=== PATIENT | male | born 1985 | race Caucasian/White ===

== ENCOUNTER 2019-01-22 15:49 | Outpatient (REF) | payer OTHER, SELFPAY ==
[2019-01-24 10:16] LABS: Lyme Ab w Rflx to Lyme Confirm Negative
== END 2019-01-22 16:09 ==
LOC: NCHCN 15:49
PROVIDERS: PCP Internal Medicine; Visit Provider Nurse Practitioner Family
DX: R53.83 Other fatigue (principal); M25.50 Pain in unspecified joint; W57.XXXA Bitten or stung by nonvenomous insect and other nonvenomous arthropods, initial encounter; T14.8XXA Other injury of unspecified body region, initial encounter
CPT/HCPCS: 86618

== ENCOUNTER 2019-06-06 09:17 | Outpatient (REF) | payer OTHER, SELFPAY ==
[2019-06-06 14:24] LABS: ALT 38 U/L (16-63); AST 20 U/L (15-37); Alkaline Phosphatase 81 U/L (46-116); Anion Gap 10.1 mmol/L (3-11); BUN 20 mg/dL (7-18); Bilirubin, Total 0.4 mg/dL (0.2-1.0); CO2 24.9 mmol/L (21.0-32.0); CREATININE 0.85 mg/dL (0.70-1.30); Calcium 8.8 mg/dL (8.5-10.1); Calculated LDL 99 mg/dL; Chloride 103 mmol/L (98-107); Cholesterol 186 mg/dL (50-200); Glucose 104 mg/dL (70-100); HDL Cholesterol 79 mg/dL (40-60); Potassium 4.5 mmol/L (3.5-5.1); Sodium 138 mmol/L (136-145); T4 6.3 ug/dL (4.5-12.5); TSH 1.27 uIU/mL (0.36-3.74); Total Protein 7.1 g/dL (6.4-8.2); Triglyceride 40 mg/dL (30-150)
[2019-06-06 22:02] LABS: T3,Free 4.1 pg/ml (2.8-5.3)
[2019-06-06 22:19] LABS: T3, Total 111 ng/dl (97-169)
== END 2019-06-06 09:37 ==
LOC: NCHCN 09:17
PROVIDERS: PCP Internal Medicine; Visit Provider Family Medicine
DX: E04.1 Nontoxic single thyroid nodule (principal)
CPT/HCPCS: 80053; 80061; 84436; 84439; 84443; 84480; 84481

== ENCOUNTER 2019-06-14 10:05 | Outpatient (CLI) | payer OTHER, SELFPAY ==
--- NOTE | 2019-06-14 15:45 | DI.US_ITS ---
SYMPTOM/DIAGNOSIS: THYROID NODULE, E04.1 THYROID ULTRASOUND: The right thyroid lobe measures 5.5 by 1.7 by 2.5 cm. The isthmus measures 5.1 mm. The left thyroid lobe measures 5.5 by 1.6 by 1.5 cm. There is no evidence of a mass or cyst. A palpable area appears to represent a 1.7 by 0.3 by 1.2 cm. lymph node.
== END 2019-06-14 10:25 ==
PROVIDERS: PCP Internal Medicine; Visit Provider Family Medicine
DX: E04.1 Nontoxic single thyroid nodule (principal); R59.0 Localized enlarged lymph nodes
CPT/HCPCS: 76536

== ENCOUNTER 2023-04-24 22:52 | Outpatient (CLI) | payer BC, OTHER, SELFPAY ==
--- NOTE | 2023-04-24 | DI.RAD_ITS ---
Exam(s) XR ANKLE RT COMPLETE EXAM: XR ANKLE RT COMPLETE CLINICAL HISTORY: PAIN IN RIGHT ANKLE---M25.571. TECHNIQUE: 2D digital imaging was performed of the right ankle. Three images were obtained. AP, la teral and oblique views were obtained. COMPARISON: No exams were available for comparison FINDINGS: BONES: No acute fracture is present. No bony destructive lesion is seen. There is a tiny round densi ty anterior to the ankle joint on the lateral view. This may represent a loose body. JOINTS: The ankle mortise is normally aligned. SOFT TISSUE: Normal. IMPRESSION: 1. No acute fracture or dislocation. 2. On the lateral view there appears to be a round density anterior to the ankle joint. This may be a loose body within the joint. An MRI may be obtained for further evaluation. DATA REPOSITORY: RADIATION DOSE DELIVERED:
== END 2023-04-24 23:12 ==
PROVIDERS: PCP Internal Medicine; Visit Provider Nurse Practitioner Family
DX: M25.571 Pain in right ankle and joints of right foot (principal)
CPT/HCPCS: 73610

== ENCOUNTER 2024-08-28 15:21 | Outpatient (REF) | payer BC, SELFPAY ==
[2024-08-28 14:14] LABS: ALT 26 U/L (16-63); AST 22 U/L (15-37); Albumin 4.2 g/dL (3.4-5.0); Alkaline Phosphatase 76 U/L (46-116); Anion Gap 6.1 mmol/L (3-11); BUN 20 mg/dL (7-18); Bilirubin, Total 0.66 mg/dL (0.2-1.0); CO2 27.9 mmol/L (21.0-32.0); CREATININE 0.9 mg/dL (0.70-1.30); Calcium 9.1 mg/dL (8.5-10.1); Calculated LDL 75 mg/dL (<100); Chloride 102 mmol/L (98-107); Cholesterol 178 mg/dL (<200); Estimated GFR 112.81 (mL/min/1.73m2); Glucose 98 mg/dL (74-106); HDL Cholesterol 98 mg/dL (40-60); Potassium 4.4 mmol/L (3.5-5.1); Sodium 136 mmol/L (136-145); Total Protein 7.1 g/dL (6.4-8.2); Triglyceride 26 mg/dL (<150)
== END 2024-08-28 15:22 | disposition home or self-care (01) ==
LOC: NCHCN 15:21
PROVIDERS: PCP Family Medicine; Visit Provider Family Medicine
DX: I10 Essential (primary) hypertension (principal); Z00.00 Encounter for general adult medical examination without abnormal findings
CPT/HCPCS: 80053; 80061